=== PATIENT | male | born 1960 | race Caucasian/White ===

== ENCOUNTER 2017-06-30 08:21 | Emergency (ER) | payer OTHER ==
[2017-06-30] MEDS ORDERED: NS 500 ML IV ONE (08:39)
[2017-06-30] MEDS ORDERED: ASPIRIN 81 MG CHEWABLE TAB PO ONE (08:39)
--- NOTE | 2017-06-30 08:51 | CPEKG ---
Heart Rate: 55 RR Interval: 1091 P-R Interval: 144 QRSD Interval: 108 QT Interval: 420 QTC Interval: 402 P Sw[place]: 27 QRS [place]: -45 T Wave Sw[place]: 12 EKG Severity - ABNORMAL ECG - EKG Impression: SINUS RHYTHM EKG Impression: LEFT ANTERIOR FASCICULAR BLOCK Electronically Signed By: Sarath Jones 30-Jun-2017 13:56:06
[2017-06-30 08:58] LABS: PLATELET COUNT 209 10^3/uL (150-400)
--- NOTE | 2017-06-30 09:39 | EDPHY ---
H & P Stated Complaint: L sharp CP and arm pain sob, starting 2 am Time Seen by Provider: 06/30/17 08:39 - Personal History Current Tetanus/Diphtheria Vaccine: Unsure Current Tetanus Diphtheria and Acellular Pertussis (TDAP): Unsure - Medical/Surgical History Hx Asthma: No Hx Chronic Respiratory Disease: Yes Hx Diabetes: No Hx Cardiac Disease: No Hx Renal Disease: No Hx Cirrhosis: No Hx Alcoholism: No Hx HIV/AIDS: No Hx Splenectomy or Spleen Trauma: No Other PMH: hyperlipidemia. hypothyroid. sleep apnea/cpap - Social History Smoking Status: Never smoked Constitutional: Initial Vital Signs Temperature (C) 36.7 C 06/30/17 08:26 Heart Rate 65 06/30/17 08:26 Respiratory Rate 16 06/30/17 08:26 Blood Pressure 99/73 L 06/30/17 08:26 O2 Sat (%) 94 06/30/17 08:26 O2 Delivery Mode Nasal Cannula O2 (L/minute) 2 Allergies/Adverse Reactions: No Known Allergies Allergy (Unverified 06/30/17 08:25) Home Medications: Medication Instructions Recorded Aspirin 81mg (*) 06/30/17 Levothyroxine 06/30/17 SIMVASTATIN 06/30/17 Medical Decision Making - Diagnostics Imaging Results: Imaging Impressions Chest X-Ray 06/30/17 08:39 Impression: Normal chest. Imaging: Discussed imaging studies w/ score caller Radiologist, I viewed and interpreted images myself ED Course/Re-evaluation: CHIEF COMPLAINT: Chest pain, dyspnea HISTORY OF PRESENT ILLNESS: The patient is a 57 y/o male with a history of hyperlipidemia arriving with his for evaluation of an episode of chest pain that woke him from sleep early this morning. He felt normal when he went to sleep last night. Early this morning he woke up and rolled over and felt extremely short of breath and was gasping for air. He was wearing a CPAP at this time and removed it. He then noticed sudden left anterior "knitting needle" chest pain. He had subsequent similar pain in his left upper arm and then achiness under his left shoulder blade. The chest and arm pain resolved after about 10 minutes and he was able to sleep for another 3-4 hours. When he woke this morning he still had achiness under his left scapula that felt "like somebody is putting their elbow there." This was still present in a mild form on his drive to the ED. He currently denies chest pain, dyspnea, lightheadedness, near-syncope, headache, fever, or other symptoms. He does note frequent morning awakenings with diaphoresis since last summer. He has no history of hypertension, CAD, or diabetes. He is a nonsmoker and denies recent long travel. His mother of an MT at age 62 and his father has CHF and a pacemaker. He had a normal stress test with Dr. Blanchard 15 years ago. REVIEW OF SYSTEMS: A 10 point review of systems was performed and is negative with the exception of the elements mentioned in the history of present illness. PHYSICAL EXAM: HR, BP, O2 Sat, RR. Temp noted General Appearance: Alert, well hydrated, appropriate, and non-toxic appearing. Head: Atraumatic without scalp tenderness or obvious injury Eyes: Pupils equal, round, reactive to light and accommodation, EOMI, no trauma , no injection. Nose: Atraumatic, no rhinorrhea, clear. Throat: Mucus membranes moist. Neck: Supple, non-tender, no lymphadenopathy. Respiratory: No retractions, no distress, no wheezes, and no accessory muscle use. Lungs are clear to auscultation bilaterally. Cardiovascular: Regular rate and rhythm, no murmurs, rubs, or gallops. Good capillary refill all extremities. Gastrointestinal: Abdomen is soft, non-tender, non-distended, no masses, no rebound, no guarding, no peritoneal signs. Musculoskeletal: Normal active ROM of all extremities, atraumatic. Neurological: Alert, appropriate, and interactive. The patient has non-focal cranial nerves, motor, sensory, and cerebellar exam. Skin: No rashes, good turgor, no nodules on palpation. PAST MEDICAL HISTORY: Hyperlipidemia though low HDL, hypothyroidism, thyroid mass, obstructive sleep apnea on CPAP, bradycardia, he reports he is a carrier for Factor V Leiden deficiency. PAST SURGICAL HISTORY: Denies FAMILY HISTORY: Mother of MT age 62. Father has CHF and pacemaker. Does not have any siblings. SOCIAL HISTORY: Nonsmoker. . PCP: Dr. Franco DIAGNOSTICS/PROCEDURES/CRITICAL CARE TIME: The 12 lead EKG was interpreted by myself. Sinus mechanism, bradycardia rate 55. See hard copy and/or "tracemaster" electronic copy for interpretation. Chest x-ray: negative Chest CTA: no PE DIFFERENTIAL DIAGNOSIS: The differential diagnosis for the patient's shortness of breath and hypoxemia included but was not limited to pneumonia, myocardial infarction, acute mountain sickness, high altitude pulmonary edema, congestive heart failure, and pulmonary embolus. MEDICAL DECISION MAKING: This is a 57 y/o male with a couple cardiac risk factors who presents for evaluation of a 10-minute episode of chest pain early this morning. He is mildly bradycardic on exam, which he reports is baseline for him. Otherwise unremarkable exam. He is currently asymptomatic. Plan for standard cardiac work up including IV, labs, EKG, and chest x-ray. Patient's d-dimer is elevated. He also reports he is a carrier for Factor V Leiden deficiency. Chest CTA ordered. CTA is negative for PE or other acute process. Patient will require outpatient cardiac work up for provocative testing. Consulted with Dr. Salazar, tank car inspector. They will see him in the office Sunday. Reassessed patient and discussed work up. He is comfortable with plan for work up. Return precautions discussed. - Data Points Laboratory Results: Laboratory Results 06/30/17 08:41 06/30/17 08:41 06/30/17 06/30/17 06/30/17 08:41 08:41 08:41 WBC 5.93 10^3/uL 10^3/uL (3.80-9.50) RBC 4.91 10^6/uL 10^6/uL (4.40-6.38) Hgb 16.3 g/dL g/dL (13.7-17.5) Hct 45.9 % % (40.0-51.0) MCV 93.5 fL fL (81.5-99.8) MCH 33.2 pg pg (27.9-34.1) MCHC 35.5 g/dL g/dL (32.4-36.7) RDW 13.0 % % (11.5-15.2) Plt Count 209 10^3/uL 10^3/uL (150-400) MPV 9.6 fL fL (8.7-11.7) Neut % (Auto) 62.2 % % (39.3-74.2) Lymph % (Auto) 25.6 % % (15.0-45.0) Whitman % (Auto) 7.9 % % (4.5-13.0) Eos % (Auto) 3.7 % % (0.6-7.6) Baso % (Auto) 0.3 % % (0.3-1.7) Nucleat RBC Rel Count 0.0 % % (0.0-0.2) Absolute Neuts (auto) 3.68 10^3/uL 10^3/uL (1.70-6.50) Absolute Lymphs (auto) 1.52 10^3/uL 10^3/uL (1.00-3.00) Absolute Monos (auto) 0.47 10^3/uL 10^3/uL (0.30-0.80) Absolute Eos (auto) 0.22 10^3/uL 10^3/uL (0.03-0.40) Absolute Basos (auto) 0.02 10^3/uL 10^3/uL (0.02-0.10) Absolute Nucleated RBC 0.00 10^3/uL 10^3/uL (0-0.01) Immature Gran % 0.3 % % (0.0-1.1) Immature Gran # 0.02 10^3/uL 10^3/uL (0.00-0.10) D-Dimer 0.74 ug/mLFEU H ug/mLFEU (0.00-0.50) Sodium 145 mEq/L mEq/L (135-145) Potassium 4.2 mEq/L mEq/L (3.5-5.2) Chloride 109 mEq/L mEq/L (97-110) Carbon Dioxide 25 mEq/l mEq/l (22-31) Anion Gap 11 mEq/L mEq/L (8-16) BUN 18 mg/dL mg/dL (7-23) Creatinine 0.8 mg/dL mg/dL (0.7-1.3) Estimated GFR > 60 Glucose 129 mg/dL H mg/dL (70-100) Calcium 9.1 mg/dL mg/dL (8.5-10.4) Troponin I < 0.012 ng/mL ng/mL (0.000-0.034) NT-Pro-B Natriuret Pep 31 pg/mL pg/mL (0-125) Medications Given: Discontinued Medications Aspirin (Aspirin) 324 mg PO EDNOW ONE Stop: 06/30/17 08:40 Last Admin: 06/30/17 08:56 Dose: 324 mg Sodium Chloride (Ns) 500 mls @ 1,000 mls/hr IV EDNOW ONE PRN Reason: Protocol Stop: 06/30/17 09:08 Last Admin: 06/30/17 08:57 Dose: 500 mls Departure - Departure Disposition: Home, Routine, Self-Care Clinical Impression: Chest pain Qualifiers: Chest pain type: other chest pain Qualified Code(s): R07.89 - Other chest pain Condition: Good Instructions: Chest Pain (ED) Additional Instructions: 1. Call Dr. Salazar's office first thing Sunday. Tell them you were seen in the ER this weekend and need to be seen "STAT" and that Dr. Salazar is aware of your case. 2. Return to the ED for any worsening of condition. Referrals: Roni Franco MD [Primary Care Provider] - As per Instructions Samantha Salazar MD [Medical Doctor] - As per Instructions Report Scribed for: Sarath Jones Report Scribed by: Celena Irvin Date of Report: 06/30/17 Time of Report: 09:51
[2017-06-30] MEDS ORDERED: IOPAMIDOL (ISOVUE 370) 100 ML BTL IV ONE (09:57)
[2017-06-30 11:05] VITALS: BP 128/78; PULSE 53; RESP 16; TEMP 97.3; O2SAT 93
== END 2017-06-30 11:04 | disposition home or self-care (01) ==
PROC: 3E0337Z Introduction of Electrolytic and Water Balance Substance into Peripheral Vein, Percutaneous Approach (ICD-10-PCS; principal; 2017-06-30)
DX: R07.89 Other chest pain (principal); Z79.82 Long term (current) use of aspirin
CPT/HCPCS: Q9967